=== PATIENT | female | born 1995 | race Hispanic/Latino ===

== ENCOUNTER 2018-01-18 08:02 | Outpatient (CLI) | payer OTHER | END 2018-01-18 08:03 | disposition home or self-care (01) | LOC: BICULT 08:02 | PROVIDERS: ATTEND Family Medicine | DX: R22.9 Localized swelling, mass and lump, unspecified (principal) | CPT/HCPCS: 76700 ==

== ENCOUNTER 2018-08-11 17:20 | Outpatient (CLI) | payer OTHER ==
--- NOTE | 2018-08-11 18:11 | RAD ---
TWO VIEWS LEFT HIP: 08/11/18 COMPARISON: None. HISTORY: Sciatic pain down the left hip since June. Sacroiliitis. FINDINGS: Two views left hip shows no evidence of acute fracture or dislocation. No degenerative changes are se en in the hip or left sacroiliac joint. IMPRESSION: Unremarkable exam. POS: [facility]
--- NOTE | 2018-08-11 18:14 | RAD ---
THREE VIEWS OF THE SACROILIAC JOINTS 08/11/18 COMPARISON: None. HISTORY: Sacroiliitis. FINDINGS: Three views of the sacroiliac joints shows a symmetric appearance of the sacroiliac joints. There is normal appearance without significant effusion or erosions. No sclerotic changes seen surrounding the sacroiliac joints. The pubic symphysis is unremarkable. IMPRESSION: Unremarkable exam. POS: [facility]
== END 2018-08-11 17:21 | disposition home or self-care (01) ==
LOC: SCSRAD 17:20
PROVIDERS: ATTEND Family Medicine
DX: M46.1 Sacroiliitis, not elsewhere classified (principal)
CPT/HCPCS: 72202